=== PATIENT | male | born 1940 | race Asian ===

== ENCOUNTER 2019-11-08 08:12 | Day surgery (SDC) | payer OTHER ==
--- NOTE | 2019-11-05 03:36 | HP ---
CC: Dr. Keri Arteaga * ADMITTING HISTORY AND PHYSICAL: DATE OF ADMISSION: 11/08/19 ADMITTING DIAGNOSES: 1. Calculus, left ureter. 2. Left hydronephrosis. PLANNED PROCEDURE: Left ureteroscopy, possible laser and stent insertion. SURGEON: Dr. Guzman Alfaro. HISTORY OF PRESENT ILLNESS: King Zev is a 79-year-old gentleman who initially about 2 to 3 weeks ago had an episode of left lower quadrant pain. At that time , ultrasound and a subsequent CT scan were obtained, which showed small bilateral renal calculi and a 9 cm complex cyst in the left kidney with evidence of bleeding into the cyst. His lab work at that time showed an elevated serum creatinine of 1.66 (baseline had been 1.07 in May 2019) and he was seen in my office on 11/04/19, at which time an ultrasound revealed left hydronephrosis with a 5 mm calculus in the left distal ureter. His serum creatinine was repeated and now has further deteriorated and is 1.78. He is now being brought in for left ureteroscopy, possible laser and stent insertion. PAST MEDICAL HISTORY: Significant for: 1. Hypertension. 2. Gout. 3. History of seizure (4 to 5 years ago, no other details available at the time of this dictation). PAST SURGICAL HISTORY: Unremarkable. MEDICATIONS ON ADMISSION: 1. Metoprolol 50 mg twice a day. 2. Lisinopril 5 mg a day. 3. Allopurinol 300 mg a day. ALLERGIES: No known drug allergies. FAMILY HISTORY: Negative for stones or bladder or kidney cancer. SOCIAL HISTORY: Smoking History: He is a former smoker who quit 50 years ago and had a [id number] smoking history prior to that. REVIEW OF SYSTEMS: He is otherwise in excellent health and still works full- time. He denies any chest pain or shortness of breath. PHYSICAL EXAMINATION GENERAL: Reveals a pleasant elderly gentleman. VITAL SIGNS: Blood pressure is 136/84, pulse 78 per minute and regular, temperature 96.2, oxygen saturation 98% on room air. LUNGS: Clear bilaterally. CARDIOVASCULAR: Regular rate and rhythm. S1, S2. ABDOMEN: Soft with mild left flank tenderness. IMPRESSION: A 79-year-old gentleman with a history of hematuria and worsening serum creatinine with an obstructing calculus in the left distal ureter. PLAN/RECOMMENDATIONS: Planned procedure is left ureteroscopy, possible laser and stent insertion. [id number]/[facility] #: [id number] MTDD
[~2019-11-08 08:12] MED LIST: Buffered Lidocaine 1% SYRIN* 1 ML/SYRINGE INTRADERM ONE; Lactated Ringers 1000 ML Bag* 1,000 ML IV SCH; Sodium Citrate/Citric Acid* 15 ML UDC PO ONE
[2019-11-08] MEDS ORDERED: Buffered Lidocaine 1% SYRIN* 1 ML/SYRINGE INTRADERM ONE (08:59)
[2019-11-08] MEDS ORDERED: cefTRIAXone(*) 2 GM ADDV.VIAL IVPB ONE (08:59)
[2019-11-08] MEDS ORDERED: Sodium Citrate/Citric Acid* 15 ML UDC ONE (10:53)
[2019-11-08] MEDS ORDERED: Iohexol 180 (CONTRAST) 10 ML SDV IV ONE (10:55)
[2019-11-08] MEDS ORDERED: fentaNYL* 50 MCG/ML 2 ML VIAL (100 MCG VIAL) ONE (10:59)
[2019-11-08] MEDS ORDERED: Propofol* 10 MG/ML 20 ML BTL ONE (10:59)
[2019-11-08] MEDS ORDERED: Lidocaine 2% PF * 5 ML VIAL ONE (11:12)
[2019-11-08] MEDS ORDERED: Furosemide IV* 10 MG/ML 2 ML VIAL (20 MG) ONE (11:41)
[2019-11-08 13:54] VITALS: BP 147/82
--- NOTE | 2019-11-08 18:02 | OP ---
CC: Keir Aretaga MD * DATE OF OPERATION: 11/08/19 - [facility] DATE OF : 44 SURGEON: Guzman Alfaro MD ANESTHESIOLOGIST: Dr. Jaramillo. ANESTHESIA: General. PRE-OP DIAGNOSES: 1. Calculus, left ureter. 2. Left hydronephrosis. POST-OP DIAGNOSES: 1. Calculus, left ureter. 2. Left hydronephrosis. OPERATIVE PROCEDURE: Cystoscopy, left retrograde pyelogram, left ureteroscopy, and laser lithotripsy and removal of stone fragment, and left stent insertion. COMPLICATIONS: None. STENT USED: 8-Pashto stent, left ureter. INDICATIONS: King Zev is a 79-year-old gentleman who had initially had gross hematuria, which was felt to be secondary to rupture of left renal cyst into the collecting system. He was seen in my office and was noted to have an obstructing calculus in the left distal ureter, and because of worsening renal function, he is now being brought in for left ureteroscopy. OPERATIVE FINDINGS: 1. Mildly enlarged prostate. 2. Gross hematuria noted from left ureter with multiple clot filling up left ureter. 3. Approximately 5 to 6 mm calculus in left distal ureter. 4. Left hydronephrosis. POSTOPERATIVE CONDITION: Stable. DESCRIPTION OF PROCEDURE: After induction of general anesthesia, the patient was placed on dorsal lithotomy position. Sequential compression devices were in place and functioning. Initial cystoscopy revealed a normal-appearing urethra and a mildly enlarged prostate. The bladder was examined. The right and left urethral orifices were in normal position. There was no evidence of any bladder lesion. A small blood clot was noted at the left orifice. Left retrograde pyelogram revealed dilated left collecting system with hydronephrosis and hydroureter. A 6-Pashto semirigid ureteroscope was introduced and advanced into the left ureter. In the distal left ureter, there was a 5 to 6 mm calculus, but visibility was severely compromised due to the presence of multiple clots within the left ureter. After flushing out some of these clots, I was finally able to try to visualize the calculus, and using a 550 micron holmium laser, this was successfully broken up into multiple fragments. All of these were retrieved. An 8-Pashto stent was introduced and positioned under fluoroscopy with good proximal and distal positioning obtained. I am slightly concerned given the large amount of clots noted within the left ureter as to why this should be happening 2 to 3 weeks after his initial events related to the cyst and I may consider bringing him back in a few weeks for a repeat ureteroscopy to make sure there is no mucosal lesions involving the left ureter or proximal left selecting system, which is leading to the hematuria and the presence of so many clots. The patient tolerated the procedure satisfactorily and was transferred back to the recovery area in stable condition. [id number]/CPS #: [id number] MTDD
== END 2019-11-08 13:57 | disposition home or self-care (01) ==
LOC: OR 08:12
PROVIDERS: ATTEND Urology
DX: N13.2 Hydronephrosis with renal and ureteral calculous obstruction (principal); R31.0 Gross hematuria; N40.0 Benign prostatic hyperplasia without lower urinary tract symptoms; I10 Essential (primary) hypertension; M10.9 Gout, unspecified; Z87.891 Personal history of nicotine dependence
CPT/HCPCS: 74420; 82365; 88300; A9270-GY; C1876; J0696; J1940; J2704; J3010

== ENCOUNTER 2019-12-27 06:29 | Day surgery (SDC) | payer OTHER ==
--- NOTE | 2019-12-03 08:37 | HP ---
CC: Dr. Keri Arteaga * ADMITTING HISTORY AND PHYSICAL: DATE OF ADMISSION: 12/27/19 ADMITTING DIAGNOSES: 1. Hematuria. 2. History of left hydronephrosis. PLANNED PROCEDURE: Retrograde left ureteroscopy and pyeloscopy and left stent replacement. SURGEON: Guzman Alfaro MD HISTORY OF PRESENT ILLNESS: King Zev is a 79-year-old gentleman who had been evaluated for hematuria and left hydronephrosis. He had been noted to have a fairly large obstructing calculus in the left distal ureter, which was successfully treated on 11/08/19. At that time, I had noted that he had fairly a extensive amount of blood clots in the left ureter and I was not clear as to the etiology of that and he is now being brought in for a repeat left ureteroscopy to make sure that there is no occult lesion within the left proximal ureter or left renal pelvis that led to the presence of the blood clots in the ureter. PAST MEDICAL HISTORY: Significant for: 1. Left ureteral calculus. 2. Gout. 3. Hypertension. 4. History of seizure. PAST SURGICAL HISTORY: Significant for left ureteroscopy and laser lithotripsy and left stent insertion on 11/08/19. MEDICATIONS ON ADMISSION: 1. Lisinopril 5 mg a day. 2. Allopurinol 300 mg a day. 3. Metoprolol 50 mg b.i.d. ALLERGIES: No known drug allergies. FAMILY HISTORY: Negative for stones. SOCIAL HISTORY: Smoking history: He is a former smoker with a [id number] smoking history who quit about 50 years ago. REVIEW OF SYSTEMS: He denies any chest pain or shortness of breath. PHYSICAL EXAMINATION GENERAL: Reveals a pleasant, healthy-appearing elderly gentleman. VITAL SIGNS: Blood pressure is 122/80, pulse 70 per minute and regular, temperature 97.1, oxygen saturation 99% on room air. LUNGS: Clear bilaterally. CARDIOVASCULAR EXAM: Regular rate and rhythm. S1, S2. ABDOMEN: Soft with mild left flank tenderness. IMPRESSION: A 79-year-old gentleman who had been successfully treated for a left ureteral calculus and at that time was noted to have extensive amount of clots in the left ureter and is being brought in for left ureteroscopy, pyeloscopy, and stent replacement. [id number]/[facility] #: [id number] [facility]
--- NOTE | 2019-12-21 21:03 | HP ---
CC: Keri Arteaga MD * ADMITTING HISTORY AND PHYSICAL: DATE OF ADMISSION: 12/27/19 ADMITTING DIAGNOSES: 1. Hematuria. 2. History of left ureteral calculus. 3. Left hydronephrosis. PLANNED PROCEDURE: Left retrograde, left ureteroscopy and pyeloscopy and left stent replacement. SURGEON: Dr. Alfaro. HISTORY OF PRESENT ILLNESS: King Zev is a 79-year-old gentleman who had been evaluated for left-sided pain and hematuria. He was noted to have an obstructing calculus in the left ureter which was successfully treated with left ureteroscopy and laser lithotripsy on 11/08/19. At that time, he was noted to have multiple clots involving the entire lumen of the ureter which was out of proportion to what I would expect with calculus alone. He is now being brought in for further evaluation to make sure that there is no underlying mucosal lesions responsible for his presentation with hematuria and large volume of clots in the left ureter. PAST MEDICAL HISTORY: Significant for: 1. Gout. 2. Hypertension. 3. Recent left ureteral calculus. 4. History of seizure. PAST SURGICAL HISTORY: Significant for left ureteroscopy, laser lithotripsy and stent on 11/08/19. MEDICATIONS: On admission: 1. Lisinopril 5 mg a day. 2. Allopurinol 300 mg a day. 3. Metoprolol 50 mg b.i.d. ALLERGIES: No known drug allergies. FAMILY HISTORY: Negative for stones. SOCIAL HISTORY: Smoking history: He is a former smoker with a 95-[id number] smoking history who quit about 50 years ago. REVIEW OF SYSTEMS: He is otherwise in excellent health. There is no history of diabetes mellitus or any other major systemic illness. He denies any chest pain or shortness of breath. PHYSICAL EXAMINATION GENERAL: Reveals a pleasant, healthy appearing elderly gentleman. VITAL SIGNS: Blood pressure 142/80, pulse 70 per minute and regular, temperature 97.1, oxygen saturation 99% on room air. LUNGS: Clear bilaterally CARDIOVASCULAR EXAM: Regular rate and rhythm. S1 and S2. ABDOMEN: Soft with mild left flank tenderness. IMPRESSION AND PLAN: A 79-year-old gentleman who had previously been treated successfully for a left ureteral calculus and is now being brought in for left retrograde, left ureteroscopy and pyeloscopy and left stent replacement. [id number]/[facility] #: [id number] [facility]
[~2019-12-27 06:29] MED LIST changes: -Sodium Citrate/Citric Acid* 15 ML UDC PO ONE
[2019-12-27] MEDS ORDERED: Buffered Lidocaine 1% SYRIN* 1 ML/SYRINGE INTRADERM ONE (07:32)
[2019-12-27] MEDS ORDERED: cefTRIAXone(*) 2 GM ADDV.VIAL IVPB ONE (07:32)
[2019-12-27] MEDS ORDERED: HYDROmorphone INJ1* 1 MG/ML SYRINGE IV PRN (07:58)
[2019-12-27] MEDS ORDERED: Naloxone* 0.4 MG/ML 1 ML VIAL IV PRN (07:58)
[2019-12-27] MEDS ORDERED: Ondansetron INJ* 2 MG/ML VIAL IV PRN (07:58)
[2019-12-27] MEDS ORDERED: Propofol* 10 MG/ML 20 ML BTL ONE (09:18)
[2019-12-27] MEDS ORDERED: HYDROmorphone INJ1* 1 MG/ML SYRINGE ONE (09:18)
[2019-12-27] MEDS ORDERED: Iohexol 180 (CONTRAST) 10 ML SDV IV ONE (09:24)
[2019-12-27] MEDS ORDERED: Dexamethasone IV* 4 MG/ML 1 ML (4 MG) ONE (09:34)
[2019-12-27 11:02] VITALS: BP 139/88
--- NOTE | 2019-12-27 19:24 | OP ---
CC: Dr. Keri Arteaga * DATE OF OPERATION: 12/27/19 - [facility] DATE OF : 44 SURGEON: Guzman Alfaro MD. ANESTHESIOLOGIST: Dr. Maciel. ANESTHESIA: General. PRE-OP DIAGNOSES: 1. Hematuria. 2. Left hydronephrosis. POST-OP DIAGNOSES: 1. Hematuria. 2. Left hydronephrosis. OPERATIVE PROCEDURE: Cystoscopy, left stent removal, left retrograde pyelogram , left ureteroscopy and stone extraction, left stent insertion, and left pyeloscopy. COMPLICATIONS: None. STENT USED: 7-Dutch stent, left ureter. OPERATIVE FINDINGS: 1. Small calculus, left proximal ureter with additional small blood clots and mild left hydronephrosis. 2. There is no evidence of any suspicious lesions noted in the left distal, mid , or proximal ureter or left renal pelvis. POSTOPERATIVE CONDITION: Stable. INDICATIONS: King Zev is a 79-year-old gentleman who had previously undergone successful laser lithotripsy for a calculus in the left ureter. At that time, he had been noted to have a large number of blood clots in the ureter and he is now being brought in for further evaluation to rule out any underlying neoplasm. DESCRIPTION OF PROCEDURE: After induction of general anesthesia, the patient was placed in dorsal lithotomy position. Sequential compression devices were in place and functioning. Initial cystoscopy revealed a normal-appearing urethra , mildly enlarged prostate, and a normal-appearing bladder. The previously placed stent was removed. Retrograde pyelogram revealed mild fullness of the left collecting system with no persistent filling defects noted. A 6-Dutch semi-rigid ureteroscope was introduced and advanced under direct vision into the left ureter. The entire lumen of the left distal, mid and proximal ureter was visualized and except for some mild inflammatory response to the indwelling stent, there was no evidence of any lesions noted. A small calculus adjacent to a blood clot was noted in the left proximal ureter and this was fairly soft and friable. This was engaged using a 3-prong ben and retrieved into the bladder from where it was later removed. The ureteroscope was reintroduced and advanced all the way into the renal pelvis , which was inspected and again there was no evidence of any lesions noted. At the end of the procedure, a 7-Dutch stent was introduced and positioned under fluoroscopy with good proximal and distal positioning obtained. The bladder was emptied. The patient tolerated the procedure satisfactorily and was transferred back to the recovery area in stable condition. [id number]/[facility] #: [id number] MTDAngela
== END 2019-12-27 11:00 | disposition home or self-care (01) ==
LOC: OR 06:29
PROVIDERS: ATTEND Urology
DX: N13.2 Hydronephrosis with renal and ureteral calculous obstruction (principal); R31.0 Gross hematuria; Z87.891 Personal history of nicotine dependence; I10 Essential (primary) hypertension; M10.9 Gout, unspecified
CPT/HCPCS: 74420; C1876; J0696; J1100; J1170; J2704